=== PATIENT | male | born 1950 | race Caucasian/White ===

== ENCOUNTER 2021-12-22 10:42 | Outpatient (CLI) | payer MEDICARE, SELFPAY ==
[2021-12-22 10:55] VITALS: BMI 33.4
--- NOTE | 2021-12-22 11:04 | ECG_ITS ---
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 Interpretive Statements NAME OF STUDY: TREADMILL STRESS TEST INDICATION: [exertional cp, ] EXERCISE DATA: The patient was exercised by Joshua protocol. Baseline heart rate was 96 beats per minute. Baseline blood pressure was 164/60 millimeters of mercury. Target heart rate was 125 beats per minute. Maximum heart rate achieved was 128, which was 102% of the target heart rate. Maximum blood pressure was 215/65 millimeters of mercury. Total exercise time was 6 minutes and 20 seconds. Maximum METs achieved was 10.2, maximum VO2 was 35.7. The reason for ending the test was completion of the protocol. The patient complained of shortness of breath during the stress test, which then resolved at the end of the test. ELECTROCARDIOGRAM: BASELINE: Showed sinus rhythm, normal axis, no significant ST-T changes at the baseline noted. [] EXERCISE: At the peak exercise level, [] No significant ST-T changes suggestive of ischemia noted. [] RECOVERY: During the recovery period, heart rate dropped appropriately. No significant ST-T changes in the recovery suggestive of ischemia noted. [] CONCLUSION: 1. Exercise capacity good. 2. Heart rate response was appropriate. 3. Blood pressure response was hypertensive 4. Symptoms not suggestive of ischemia. 5. Electrocardiogram portion of the stress test was not suggestive of ischemia. Electronically Signed On 01-24-2022 21:09:41 CDT by Kenneth Grigsby M.D. [email or web address] [email or web address]/[email or web address]/[id number]
[2021-12-22 11:30] VITALS: BP 144/72; PULSE 78
== END 2021-12-22 10:43 | disposition home or self-care (01) ==
LOC: CDL 10:42
PROVIDERS: Visit Provider Family Medicine
DX: R07.89 Other chest pain (principal); R06.02 Shortness of breath
CPT/HCPCS: 93017

== ENCOUNTER 2023-03-07 14:23 | Inpatient (IN) | payer MEDICARE, SELFPAY ==
[2023-03-07] VITALS (27 sets, daily range): BP systolic 125–166; BP diastolic 67–106; PULSE 71–117; RESP 13–23; TEMP 36.9; O2SAT 92–96; BMI 33.4
--- NOTE | 2023-03-07 14:26 | XR_ITS ---
WS: [id number] Exam: XR chest 1V portable [id number] Date/Time of Exam: 03/07/2023 2:39 PM Reason For Exam: chest pain No priors. Findings: The lungs are clear and fully expanded. Costophrenic angles are sharp. No infiltrates. Bronchovascula r relief appears normal. Cardiac silhouette is unremarkable. Bony elements are intact. XR/XR chest 1V portable [id number] IMPRESSION: Unremarkable chest radiograph.
--- NOTE | 2023-03-07 14:29 | W.ED.CHESTPA ---
HPI - Chest Pain General: Chief Complaint: Chest Pain Stated Complaint: off and on chest pain Time Seen by Provider: 03/07/23 14:25 Source: patient Mode of arrival: ambulatory History of Present Illness: 72-year-old male presents to the emergency room with complaints of chest discomfort and rapid heart rate. He has had chest pain off and on he tells me he thought it was reflux he says he has had it for probably 4 to 5 years. He has been taking nitro when his reflux medications do not work. Recently he has begun to have increasing shortness of breath with it and rapid heart rate and palpitations. No significant swelling in his legs no orthopnea he does note that when he bends over his symptoms get worse. He had a stress test a year ago that reportedly was negative MD complaint: chest pain Onset (ago): week(s) Timing of current episode: episodic Prior episodes: Yes Onset: during rest Pain location: substernal Pain radiation: none Quality: aching Relieving factors: nothing Exacerbating factors: exertion and other (Bending over) Associated symptoms: Reports dyspnea and palpitations; Deny abdominal pain, diaphoresis, fever(s), leg edema, nausea, sense of impending doom, syncope or vomiting Treatment prior to arrival: none Review of Systems Const: Reports: fatigue; Denies: fever(s), chills or diaphoresis ENMT: Denies: throat pain, ear or mastoid pain, nasal discharge or nasal congestion Card: Reports: chest pain, palpitations and irregular heart rhythm; Denies: edema or syncope Resp: Reports: dyspnea GI: Denies: abdominal pain, nausea or vomiting : Denies: flank pain, dysuria, urinary frequency or urinary urgency Skin/Breast: Denies: rash or pruritus Physical Exam Const: GENERAL APPEARANCE: cooperative and comfortable ORIENTATION/CONSCIOUSNESS: Yes awake, Yes oriented to person, Yes oriented to place and Yes oriented to time HENMT: COMMON NORMALS: normocephalic, atraumatic and hearing grossly normal bilaterally HEAD & SCALP: normocephalic and atraumatic Resp: COMMON NORMALS: normal respiratory effort, No retractions, No use of accessory muscles and clear to auscultation bilaterally AUSCULTATION: clear to auscultation bilaterally Cardio: RATE: tachycardic RHYTHM: abnormal rhythm irregularly irregular GI: COMMON NORMALS: Soft to palpation and No hepatosplenomegaly present AUSCULTATION: Yes normoactive bowel sounds PALPATION: Yes Soft to palpation, No Tenderness to palpation present (GI), No Guarding due to palpation present (GI) and Yes No hepatosplenomegaly present Extremity: COMMON NORMALS: normal to inspection, capillary refill normal, no clubbing, cyanosis or edema, no calf tenderness and no pedal edema Neuro: SENSORIUM/ORIENTATION: Yes oriented to person, Yes oriented to place and Yes oriented to time Skin: COMMON NORMALS: no rashes or lesions noted GENERAL SKIN EXAM: no rashes or lesions noted Course Vital Signs: Vital signs: Vital Signs Temperature 98.4 F 03/07/23 14:31 Pulse Rate 71 03/07/23 16:25 Respiratory Rate 22 H 03/07/23 16:25 Blood Pressure 166/92 03/07/23 16:25 Pulse Oximetry 94 03/07/23 16:25 Oxygen Delivery Me thod Room Air 03/07/23 16:25 MDM - Chest Pain Medical Decision Making New onset A-fib. Labs most part unremarkable creatinine slightly elevated first troponin is 9. He did well with Cardizem. His rate is well controlled at this point but he still is in atrial fibrillation rhythm. Will admit for new onset A-fib discussed with hospitalist orders written. No evidence of heart failure serial enzymes are still pending to work-up his chest pain. Medical Records I reviewed the patient's medical records. Lab Data I reviewed the patient's lab results. 03/07/23 15:00 03/07/23 15:00 Radiology Impressions Chest X-Ray 03/07/23 14:26 IMPRESSION: Unremarkable chest radiograph. Laboratory Results WBC 6.4 10^3/uL (4.0-10.0) 03/07/23 15:00 RBC 5.34 10^6/uL (4.1-5.3) H 03/07/23 15:00 Hgb 15.8 g/dL (11.7-16.6) 03/07/23 15:00 Hct 47.8 % (42.0-52.0) 03/07/23 15:00 MCV 89.5 fl (80-94) 03/07/23 15:00 MCH 29.6 pg (28.0-34.0) 03/07/23 15:00 MCHC 33.1 g/dL (30.0-36.0) 03/07/23 15:00 RDW 12.6 % (12.1-15.1) 03/07/23 15:00 Plt Count 226 10^3/cmm (130-400) 03/07/23 15:00 MPV 8.7 fL (7.4-10.4) 03/07/23 15:00 Neut % (Auto) 62.3 % 03/07/23 15:00 Lymph % (Auto) 23.5 % 03/07/23 15:00 Marshall % (Auto) 11.3 % 03/07/23 15:00 Eos % (Auto) 2.0 % 03/07/23 15:00 Baso % (Auto) 0.6 % 03/07/23 15:00 Neut # (Auto) 3.96 10^3/uL (1.8-7.7) 03/07/23 15:00 Lymph # (Auto) 1.5 10^3/uL (0.8-4.8) 03/07/23 15:00 Marshall # (Auto) 0.7 10^3/uL (0.2-0.9) 03/07/23 15:00 Eos # (Auto) 0.1 10^3/uL (0.0-0.8) 03/07/23 15:00 Baso # (Auto) 0.0 10^3/uL (0.0-0.1) 03/07/23 15:00 Nucleated RBC % (auto) 0 % 03/07/23 15:00 Nucleated RBCs # 0.0 /100WBC 03/07/23 15:00 Sodium 141 mmol/L (136-145) 03/07/23 15:00 Potassium 4.5 mmol/L (3.5-5.1) 03/07/23 15:00 Chloride 107 mmol/L (98-107) 03/07/23 15:00 Carbon Dioxide 22 mmol/L (22-29) 03/07/23 15:00 Anion Gap 16.5 (5-19) 03/07/23 15:00 BUN 20 mg/dL (8-23) 03/07/23 15:00 Creatinine 1.3 mg/dL (0.7-1.2) H 03/07/23 15:00 GFR Calculation Not Reportable 03/07/23 15:00 Glucose 94 mg/dL (65-115) 03/07/23 15:00 Calculated Osmolality 294 mOsm/kg (285-295) 03/07/23 15:00 Calcium 9.2 mg/dL (8.5-10.5) 03/07/23 15:00 Total Bilirubin 0.4 mg/dL (0.15-1.2) 03/07/23 15:00 AST 18 U/L (0-40) 03/07/23 15:00 ALT 16 U/L (0-41) 03/07/23 15:00 Alkaline Phosphatase 110 U/L (40-130) 03/07/23 15:00 Troponin T Baseline 9 ng/L (0-15) 03/07/23 15:00 Total Protein 6.8 g/dL (6.6-8.7) 03/07/23 15:00 Albumin 4.2 g/dL (3.5-5.2) 03/07/23 15:00 Globulin 2.6 g/dL (1.3-4.6) 03/07/23 15:00 Discharge Plan Discharge Patient Disposition: Admitted As Inpatient Admit Provider: Heike Jackman Clinical Impression: Atrial fibrillation with RVR, Chest pain Condition: Stable Coding Level of Care Code ED 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
--- NOTE | 2023-03-07 14:30 | ECG_ITS ---
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 Measurements Intervals [place] Rate: 117 P: 0 NE: 0 QRS: 75 QRSD: 90 T: 62 QT: 336 QTc: 470 Interpretive Statements ATRIAL FLUTTER WITH RAPID VENTRICULAR RESPONSE NONSPECIFIC T-WAVE ABNORMALITY No previous ECG available for comparison Electronically Signed On 03-07-2023 17:23:15 CDT by Kenneth Grigsby M.D. [id number]
[2023-03-07 15:12] LABS: Basophils % 0.6 %; Eosinophils # 0.1 10^3/uL (0.0-0.8); Hematocrit 47.8 % (42.0-52.0); Hemoglobin 15.8 g/dL (11.7-16.6); Lymphocytes # 1.5 10^3/uL (0.8-4.8); Lymphocytes % 23.5 %; Mean Corpuscular HGB Conc 33.1 g/dL (30.0-36.0); Mean Corpuscular Hemoglobin 29.6 pg (28.0-34.0); Mean Corpuscular Volume 89.5 fl (80-94); Mean Platelet Volume 8.7 fL (7.4-10.4); Monocytes # 0.7 10^3/uL (0.2-0.9); Monocytes % 11.3 %; Neutrophils # 3.96 10^3/uL (1.8-7.7); Neutrophils % 62.3 %; Nucleated Red Blood Cells % 0 %; Platelet Count 226 10^3/cmm (130-400); Red Blood Count 5.34 10^6/uL (4.1-5.3); Red Cell Distribution Width 12.6 % (12.1-15.1); White Blood Count 6.4 10^3/uL (4.0-10.0)
[2023-03-07] MEDS: aspirin 81 mg Chew Tablet 324 MG PO (15:13)
[2023-03-07] MEDS: dilTIAZem 5 mg/mL SDV 5 mL 20 MG IVP (15:14)
[2023-03-07] MEDS: dilTIAZem 100 MG in sodium chloride 0.9% (add-van) 100 ML IV (15:23)
[2023-03-07 15:33] LABS: Troponin(5th) Baseline 9 ng/L (0-15)
[2023-03-07 15:35] LABS: Alanine Aminotransferase 16 U/L (0-41); Albumin Level 4.2 g/dL (3.5-5.2); Alkaline Phosphatase 110 U/L (40-130); Anion Gap 16.5 (5-19); Aspartate Amino Transferase 18 U/L (0-40); Blood Urea Nitrogen 20 mg/dL (8-23); Calcium 9.2 mg/dL (8.5-10.5); Carbon Dioxide 22 mmol/L (22-29); Chloride 107 mmol/L (98-107); Globulin 2.6 g/dL (1.3-4.6); Glucose 94 mg/dL (65-115); Osmolality Calculated 294 mOsm/kg (285-295); Potassium 4.5 mmol/L (3.5-5.1); Sodium 141 mmol/L (136-145); Total Bilirubin 0.4 mg/dL (0.15-1.2); Total Protein 6.8 g/dL (6.6-8.7)
--- NOTE | 2023-03-07 15:39 | ECG_ITS ---
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 Measurements Intervals [place] Rate: 90 P: 0 MN: 0 QRS: 52 QRSD: 108 T: 61 QT: 405 QTc: 497 Interpretive Statements ATRIAL FLUTTER INCOMPLETE RIGHT BUNDLE BRANCH BLOCK [90+ ms QRS DURATION, TERMINAL R IN V1/V2, 40+ ms S IN I/aVL/V4/V5/V6] Compared to ECG 03/07/2023 14:30:13 Incomplete right bundle-branch block now present T-wave abnormality no longer present Electronically Signed On 03-07-2023 17:24:45 CDT by Kenneth Grigsby M.D. [id number]
[2023-03-07 16:48] LABS: Troponin 5 2HR 8.92 ng/L (0-15)
[2023-03-07 16:52] LABS: Troponin 5 2HR Delta -0.08 ABS# (0-10)
--- NOTE | 2023-03-07 17:26 | PM.HP ---
Providers/Chief Complaint Admitting Physician: Heike Jackman MD Primary Care Provider: Sudhakar Armas Chief Complaint: off and on chest pain History of Present Illness Ashutosh Peck is a 72 year old male without significant past medical history presenting with chief complaint of acid reflux, shortness of breath. Patient is stating that for last few years he has been experiencing acid reflux for which he has been taking MiraLAX he had a stress test a year ago which was negative he takes nitroglycerin when MiraLAX fails. He is a former very active for his age does not have significant medical history, patient stating that he only sees When he needs to otherwise he avoids going to a doctor. His gallbladder surgery was roughly 14 years ago which was unremarkable however as per the family there was a stone around the pancreas and the stone was huge like a golf ball. Patient is denying chest pain, nausea, vomiting abdominal pain with eating however endorsing shortness of breath sometimes feeling weak in his arms when he is riding his truck. Never had any syncopal event, fever, diarrhea, history of coronary disease. Review of Systems Const: Denies: fever(s) Eyes: Denies: change in vision ENMT: Denies: throat pain Card: Denies: chest pain Resp: Reports: dyspnea GI: Reports: nausea and belching : Denies: flank pain Musc: Denies: neck pain Skin/Breast: Denies: rash Neuro: Denies: headache(s) Psych: Reports: anxiety Medications/Allergies Home Medications Medication Instructions Recorded Confirmed Last Taken Type No Known Home Medications 03/07/23 03/07/23 Unknown History Allergies Allergy/AdvReac Type Severity Reaction Status Date / Time No Known Allergies Allergy Verified 03/07/23 14:26 PFSH Acute PFSH: Medical History (Updated 03/07/23 @ 19:48 by Heike Jackman MD) GERD with esophagitis No pertinent past medical history Surgical History (Updated 03/07/23 @ 19:48 by Heike Jackman MD) Hx laparoscopic cholecystectomy Family History (Updated 03/07/23 @ 19:48 by Heike Jackman MD) Denies family history of CAD (coronary artery disease) Social History (Updated 03/07/23 @ 19:48 by Heike Jackman MD) Smoking and tobacco status: never smoked Alcohol intake: never Substance/Drug Use: never Household members: spouse Housing: House Vitals/I&O/Wt Last Vital Signs Temp 98.4 F 03/07/23 14:31 Pulse 81 03/07/23 16:44 Resp 15 03/07/23 16:30 BP 125/79 03/07/23 16:35 Pulse Ox 92 03/07/23 16:30 O2 Del Method Room Air 03/07/23 16:45 Weight last 48 hrs Weight 99.79 kg Physical Exam Narrative: Pleasant cooperative male Appears younger than stated age Healthy appearing Atrial flutter heart rate in 70s Blood pressure stable Pleasant and cooperative GCS 15 Abdomen soft Doing well on room air Family is at the bedside Nonfocal neuro exam Data 03/07/23 15:00 03/07/23 15:00 A&P Assessment and plan (1) Atrial fibrillation with RVR: Plan Paroxysmal atrial flutter Currently heart rate 70s [id number] 1 for age No history of heart failure or diabetes Check A1c level Check magnesium, TSH Requested echo There is a possibility this is not new onset atrial flutter this has been going on for quite some time In case he remains in abnormal rhythm will call cardiology to see if he would need cardioversion however likelihood is low at this point Added Cardizem 30 mg p.o. every 6 hours Start therapeutic Lovenox Check D-dimer Full code Cardiac diet No restrictions at all Patient can get up and walk around Currently on Cardizem drip running at 5 mg/h Attestations Medical Necessity Statement*: Anticipating stay in the hospital to cross more than 2 midnights management of paroxysmal atrial flutter Diagnoses Atrial fibrillation with RVR I48.91
--- NOTE | 2023-03-07 17:31 | USCV_ITS ---
Ashutosh Peck Age: 72 Gender: M : 1950 Exam Date: 03/07/2023 17:59 Ordering Phys: Heike Jackman MD Technologist: EDILSON Exam Location: [facility] [place], [place] Indication: new atrial fibrillation. No history of cardiac intervention per patient. BP: 125 / 79 HR: 69 Rhythm: Sinus with intermittentAtrial flutter Technical Quality: Adequate with OPTISON MEASUREMENTS (Male / Female) Normal Values 2D ECHO LV Diastolic Diameter PLAX 4.5 cm 4.2 - 5.9 / 3.9 - 5.3 cm LV Systolic Diameter PLAX 2.9 cm IVS Diastolic Thickness 1.3 cm 0.6 - 1.0 / 0.6 - 0.9 cm IVS Systolic Thickness 1.8 cm LVPW Diastolic Thickness 1.3 cm 0.6 - 1.0 / 0.6 - 0.9 cm LVPW Systolic Thickness 1.9 cm LVOT Diameter 2.0 cm LV Ejection Fraction 2D Teich 66.6 % LV Ejection Fraction MOD 2C 54.8 % LV Ejection Fraction 2C AL 53.7 % LA Diameter 4.4 cm LA Width 3.3 cm LA Height 5.2 cm RA Width 3.3 cm RA Height 5.3 cm Aorta at Sinotubular Diameter 3.1 cm IVC Diameter 1.5 cm M-MODE Aortic Annulus Diameter 2.8 cm LA Ao Ratio MM 1.5 MV E Point Septal Separation 0.4 cm DOPPLER AV Peak Velocity 152.0 cm/s LVOT Peak Velocity 87.0 cm/s AV Area Cont Eq vti 1.9 cm squared AV Area Cont Eq pk 1.9 cm squared MV Area PHT 4.4 cm squared Mitral E to A Ratio 2.2 MV E' Velocity 90.0 cm/s TR Peak Velocity 246.0 cm/s TR Peak Gradient 24.2 mmHg TV Peak E Velocity 40.0 cm/s Right Atrial Pressure 10.0 mmHg Pulmonary Artery Systolic Pressu 34.2 mmHg PV Peak Velocity 109.0 cm/s RV Acceleration Time 0.1 s RV Ejection Time 0.4 s RV AcT/ET 0.2 FINDINGS Left Ventricle Normal LV size ejection fraction of around 59%. No gross wall motion normalities noted Right Ventricle Appears to be of normal size and ejection fraction Right Atrium Possibly of normal size Left Atrium Possibly of normal size Mitral Valve No gross abnormalities noted Aortic Valve Thickened aortic valve. Tricuspid Valve No gross abnormalities noted Pulmonic Valve Pulmonic valve not well visualized. Pericardium Normal pericardium without effusion. Aorta Normal aortic annulus size. IVC Inferior vena cava not visualized. CONCLUSIONS Normal LV size andejection fraction of around 59%. No gross wall motion normalities noted. Possibly normal cardiac chamber sizes. No gross valvular abnormalities are noted. No significant pericardial effusion Because of technical difficulty, Optison was used for LV function analysis, as per protocol Dr Pastora Shepard MD FACC (Electronically Signed) Final Date: 09 March 2023 08:02 S
[2023-03-07] MEDS: dilTIAZem 30 mg Tablet PO ×2 (17:48→22:58)
[2023-03-07] MEDS: magnesium oxide 400 mg tablet PO (17:48)
[2023-03-07] MEDS: enoxaparin 100 mg/mL Syringe SUBCUT (17:48)
[2023-03-07 18:14] LABS: D Dimer 2.64 ug/mIFEU (0-0.59)
[2023-03-07 18:32] LABS: Thyroid Stimulating Hormone 2.12 uIU/mL (0.27-4.20)
--- NOTE | 2023-03-07 19:50 | USCV_ITS ---
Ashutosh Peck Age: 72 Gender: M : 1950 Exam Date: 03/07/2023 21:33 Ordering Phys: Heike Jackman MD Technologist: EDILSON Exam Location: [facility] – [place] Indication: atrial flutter. No history of DVT per patient. HISTORY: atrial flutter. No history of DVT per patient. PROCEDURES: Venous duplex imaging was performed in bilateral lower extremities. The following venous structures were evaluated: common femoral vein, profunda vein, proximal portion of the greater saphenous vein, superficial femoral vein, and the popliteal vein. In addition, the posterior tibial and peroneal veins were evaluated. FINDINGS: Normal 2-D Doppler and augmentation and compressibility throughout the lower extremity venous structures. Additional imaging through the proximal calf veins also reveals no thrombus. Limited evaluation of the greater saphenous vein is patent with no thrombus. CONCLUSIONS No DVT bilateral lower extremities. Dr. Pearl Roy DO (Electronically Signed) Final Date: 08 March 2023 07:20 S
--- NOTE | 2023-03-07 19:50 | CTR_ITS ---
PROCEDURE INFORMATION: Exam: CTA Chest With Contrast Exam date and time: 03/07/2023 8:47 PM Age: 72 years old Clinical indication: Other: Afib TECHNIQUE: Imaging protocol: Computed tomographic angiography of the chest with contrast. Exam focused on the arteries. 3D rendering (Not supervised by radiologist): MIP and/or 3D reconstructed images were created by the technologist. Radiation optimization: All CT scans at this facility use at least one of these dose optimization techniques: automated exposure control; mA and/or kV adjustment per patient size (includes targeted exams where dose is matched to clinical indication); or iterative reconstruction. Contrast material: OMNI 350; Contrast volume: 100 ml; Contrast route: INTRAVENOUS (IV); REPORTING DATA: Count of CT and Cardiac NM exams in prior 12 months: This patient has received 0 known CTs and 0 known cardiac nuclear medicine studies in the 12 months prior to the current study. COMPARISON: CR XR chest 1V portable [id number] 03/07/2023 2:40 PM RADIATION DOSE METRICS: Total DLP (mGy-cm): 468.04 FINDINGS: Pulmonary arteries: Pulmonary arteries are normal in size. No filling defects are demonstrated. No evidence of pulmonary embolism. Aorta: Ascending aorta measures 3.5 cm in diameter. No evidence of aortic dissection. Lungs: Mild dependent atelectasis in the lower lobes. No consolidative pulmonary infiltrate noted. Pleural spaces: No pneumothorax. No pleural effusion. Heart: No cardiomegaly. No pericardial effusion. Coronary arteries: The coronary arteries demonstrate atherosclerotic calcifications. Lymph nodes: Unremarkable. No enlarged lymph nodes. Bones/joints: Degenerative spine changes are noted. No acute osseous abnormality. Soft tissues: Unremarkable. CT/CT angio chest PE protcl [id number] IMPRESSION: 1. No evidence of pulmonary embolism. 2. No evidence of aortic dissection. 3. Mild dependent atelectasis in the lower lobes. No consolidative pulmonary infiltrate noted.
[2023-03-07 20:26] LABS: Estmated Average Glucose 114; Hemoglobin A1C 5.6 % (4.0-6.0)
--- NOTE | 2023-03-07 20:27 | ECG_ITS ---
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 Measurements Intervals [place] Rate: 71 P: 0 SD: 0 QRS: 124 QRSD: 114 T: 129 QT: 406 QTc: 442 Interpretive Statements ATRIAL FLUTTER POSSIBLE RIGHT VENTRICULAR HYPERTROPHY [SOME/ALL OF: PROMINENT R IN V1, LATE TRANSITION, RAD, BRAD, SSS] Compared to ECG 03/07/2023 15:39:21 Incomplete right bundle-branch block no longer present Electronically Signed On 03-07-2023 23:19:47 CDT by Kenneth Grigsby M.D. [id number]
[2023-03-07] MEDS: iohexol 350 mg/mL 500 mL Btl (per mL) IV (20:49)
[2023-03-07 22:41] LABS: Troponin 5 6HR 10.43 ng/L (0-15)
[2023-03-07 22:57] LABS: Troponin 5 6HR Delta 1.43 ng/L (0-12)
[2023-03-07 23:00] LABS: Prostate Specific Antigen 0.495 ng/mL (0-4)
[2023-03-08] VITALS (7 sets, daily range): BP systolic 99–126; BP diastolic 65–71; PULSE 71–89; RESP 15–17; TEMP 36.9; O2SAT 94–96
[2023-03-08 04:56] LABS: Basophils % 0.5 %; Eosinophils # 0.2 10^3/uL (0.0-0.8); Eosinophils % 2.9 %; Hematocrit 45.9 % (42.0-52.0); Hemoglobin 15.3 g/dL (11.7-16.6); Lymphocytes # 1.8 10^3/uL (0.8-4.8); Lymphocytes % 30.2 %; Mean Corpuscular HGB Conc 33.3 g/dL (30.0-36.0); Mean Corpuscular Hemoglobin 29.5 pg (28.0-34.0); Mean Corpuscular Volume 88.6 fl (80-94); Mean Platelet Volume 9.2 fL (7.4-10.4); Monocytes # 0.7 10^3/uL (0.2-0.9); Monocytes % 10.9 %; Neutrophils # 3.28 10^3/uL (1.8-7.7); Nucleated Red Blood Cells % 0 %; Platelet Count 216 10^3/cmm (130-400); Red Blood Count 5.18 10^6/uL (4.1-5.3); Red Cell Distribution Width 12.6 % (12.1-15.1)
[2023-03-08 05:13] LABS: Anion Gap 15.3 (5-19); Blood Urea Nitrogen 17 mg/dL (8-23); Carbon Dioxide 24 mmol/L (22-29); Chloride 105 mmol/L (98-107); Glucose 94 mg/dL (65-115); Magnesium 2.1 mg/dL (1.7-2.3); Osmolality Calculated 291 mOsm/kg (285-295); Potassium 4.3 mmol/L (3.5-5.1); Sodium 140 mmol/L (136-145)
[2023-03-08] MEDS: enoxaparin 100 mg/mL Syringe SUBCUT (05:55)
[2023-03-08] MEDS: dilTIAZem 30 mg Tablet PO ×2 (05:55→12:13)
[2023-03-08] MEDS: magnesium oxide 400 mg tablet PO (08:46)
--- NOTE | 2023-03-08 09:47 | PC.CHAP ---
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 [] Patient/Family/Request visit [] Outpatient visit [] Follow-up visit [] Physician referral [] Code/Alert [x] Routine visit [] Staff referral [] Actively dying [] Patient sleeping [] Family support [] [] Out of room [] Palliative care [] [] Receiving care in room [] Pre-surgical visit [] Trauma [] Long length of stay [] ICU visit [] Other: Relational/Emotional Strength [x] Patient feels connected with others/family/visitors/staff [] Distress [] Loneliness/isolation [] Abandonment Spirituality of Patient [x] Person of Aaliyah [x] Attends Muslim of their Aaliyah [x] Believes in Prayer [x] Reads Bible or Uatsdin materials [] There are Spiritual issues to be addressed Audio Engineer Interventions [x] Prayer [x] Active listening [] Non-anxious presence [x] Spiritual/emotional support [] Crisis/trauma care [] Spiritual counseling [] Bereavement support [] Provided bereavement packet [] Provided Bible/devotional materials [] Provided toy/stuffed animal, coloring book to patient or family member [] Provided Communion [] Anointing/Lavinia [] Salvation [x] Completed spiritual assessment [] Other: Impact on Illness or Injury [] Angry [] Fearful [] Anxious [] Often cries [] Exhaustion [] Unable to work [] Unable to attend moravian [] Unable to walk/stand [] Unable to read [] Unable to drive [] Unable to eat/drink [] Unable to sleep [] Unable to be with family [] Patient intubated [] Other: Summary Time spent with patient 15 min
--- NOTE | 2023-03-08 10:53 | PM.PN ---
Subjective Subjective: I will request stress test was tomorrow Heart rate is slightly better as compared to yesterday Patient is doing well No active chest pain Echo is pending Diltiazem drip has been discontinued Vitals/I&O/Wt Last Vital Signs Temp 98.5 F 03/08/23 08:13 Pulse 81 03/08/23 08:13 Resp 15 03/08/23 08:13 BP 120/71 03/08/23 08:13 Pulse Ox 94 03/08/23 08:13 O2 Del Method Room Air 03/08/23 08:13 03/07/23 03/08/23 03/08/23 22:59 06:59 14:59 Intake Total 128.083 / 128.083 720 / 720 Balance 128.083 / 128.083 720 / 720 Weight last 48 hrs Weight 99.79 kg Physical Exam Narrative: Rhythm is still atrial flutter Heart rate in 70s to 100s Variable S1-S2 abdomen soft GCS 15 Nonfocal neuro exam No apparent distress Abdomen soft Data 03/08/23 04:16 03/08/23 04:16 A&P Assessment and plan (1) Atrial fibrillation with RVR: Plan Plan for stress test tomorrow No signs of PE or DVT Continue p.o. Cardizem along Lovenox Idris vas score is only 1 I will discharge patient on aspirin at the time of discharge Patient is full code P n.p.o. after midnight Stress test for tomorrow morning Plan to discharge him tomorrow Attestations Medical Necessity Statement*: Rest tomorrow Diagnoses Atrial fibrillation with RVR I48.91
--- NOTE | 2023-03-08 13:53 | P.DS_ITS ---
Discharge Providers Date of Admission: 03/07/23 15:48 Date of Discharge: March 08, 2023 Attending Provider at Admission: Heike Jackman MD Attending Provider at Discharge: Heike Jackman MD Primary Care Provider: Sudhakar Armas Diagnoses at Discharge Discharge Diagnosis (1) Atrial fibrillation with RVR: Status: Acute Reason for Visit Reason for Visit: off and on chest pain Hospital Course Hospital Course 72-year-old male without significant past medical history presented to the hospital with chief complaint of epigastric burning, troponins negative, D-dimer was high, CTA chest did not show PE venous Doppler did not show signs of DVT, patient remained hemodynamically stable he was initially put on Cardizem drip which was transitioned to p.o. Cardizem his heart rate on rest is around 70 on ambulation its flexors between 90-100 he has been getting Cardizem 240 mg in the hospital, at the time of discharge I will give him 360 mg, his Idris vas score is 1 does not meet criteria to be on any anticoagulating agent we will discharge him on aspirin high-dose. His recent stress test was unremarkable there is no need to repeat stress test at this point. He did not complain of any chest pain. 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 I will give him referral to see cardiology within 2 weeks. Patient symptoms seems to be chronic, I do not believe this is acute in nature he is not symptomatic with his current atrial flutter rhythm does not meet criteria to get cardioversion during hospitalization Physical Exam Narrative: S1, S2 atrial flutter heart rate in 70s Awake and alert GCS 15 Currently on room air Pleasant and cooperative Discharge Data Studies Completed and Pending Completed Studies During Hospitalization Category Date Time Status CTA PE [CT angio chest PE protcl [id number]] Routine Cat Scan 03/07/23 19:50 Completed XR chest 1V portable [id number] Stat Exams 03/07/23 14:26 [place] [id number] Routine Ultrasound 03/07/23 19:50 Completed Pending at discharge Category Date Time Status Sestamibi Stress Test Request Routine Exams 03/08/23 10:53 Ordered NM sid perf SPECT r/s* [id number] Routine Nuc Med 03/09/23 08:00 Ordered CV. echo wo/w contrast [id number] Routine Ultrasound 03/07/23 17:31 Taken Radiology Impressions Chest X-Ray 03/07/23 14:26 IMPRESSION: Unremarkable chest radiograph. Chest CTA 03/07/23 19:50 IMPRESSION: 1. No evidence of pulmonary embolism. 2. No evidence of aortic dissection. 3. Mild dependent atelectasis in the lower lobes. No consolidative pulmonary infiltrate noted. Laboratory Results WBC 6.0 10^3/uL (4.0-10.0) 03/08/23 04:16 RBC 5.18 10^6/uL (4.1-5.3) 03/08/23 04:16 Hgb 15.3 g/dL (11.7-16.6) 03/08/23 04:16 Hct 45.9 % (42.0-52.0) 03/08/23 04:16 MCV 88.6 fl (80-94) 03/08/23 04:16 MCH 29.5 pg (28.0-34.0) 03/08/23 04:16 MCHC 33.3 g/dL (30.0-36.0) 03/08/23 04:16 RDW 12.6 % (12.1-15.1) 03/08/23 04:16 Plt Count 216 10^3/cmm (130-400) 03/08/23 04:16 MPV 9.2 fL (7.4-10.4) 03/08/23 04:16 Neut % (Auto) 55.0 % 03/08/23 04:16 Lymph % (Auto) 30.2 % 03/08/23 04:16 [place] % (Auto) 10.9 % 03/08/23 04:16 Eos % (Auto) 2.9 % 03/08/23 04:16 Baso % (Auto) 0.5 % 03/08/23 04:16 Neut # (Auto) 3.28 10^3/uL (1.8-7.7) 03/08/23 04:16 Lymph # (Auto) 1.8 10^3/uL (0.8-4.8) 03/08/23 04:16 [place] # (Auto) 0.7 10^3/uL (0.2-0.9) 03/08/23 04:16 Eos # (Auto) 0.2 10^3/uL (0.0-0.8) 03/08/23 04:16 Baso # (Auto) 0.0 10^3/uL (0.0-0.1) 03/08/23 04:16 Nucleated RBC % (auto) 0 % 03/08/23 04:16 Nucleated RBCs # 0.0 /100WBC 03/08/23 04:16 D-Dimer 2.64 ug/mIFEU (0-0.59) H 03/07/23 15:00 Sodium 140 mmol/L (136-145) 03/08/23 04:16 Potassium 4.3 mmol/L (3.5-5.1) 03/08/23 04:16 Chloride 105 mmol/L (98-107) 03/08/23 04:16 Carbon Dioxide 24 mmol/L (22-29) 03/08/23 04:16 Anion Gap 15.3 (5-19) 03/08/23 04:16 BUN 17 mg/dL (8-23) 03/08/23 04:16 Creatinine 1.0 mg/dL (0.7-1.2) 03/08/23 04:16 GFR Calculation Not Reportable 03/08/23 04:16 Glucose 94 mg/dL (65-115) 03/08/23 04:16 Estimat Average Glucose 114 03/07/23 15:00 Hemoglobin A1c 5.6 % (4.0-6.0) 03/07/23 15:00 Calculated Osmolality 291 mOsm/kg (285-295) 03/08/23 04:16 Calcium 9.0 mg/dL (8.5-10.5) 03/08/23 04:16 Phosphorus 3.0 mg/dL (2.5-4.5) 03/08/23 04:16 Magnesium 2.1 mg/dL (1.7-2.3) 03/08/23 04:16 Total Bilirubin 0.4 mg/dL (0.15-1.2) 03/07/23 15:00 AST 18 U/L (0-40) 03/07/23 15:00 ALT 16 U/L (0-41) 03/07/23 15:00 Alkaline Phosphatase 110 U/L (40-130) 03/07/23 15:00 Troponin T Baseline 9 ng/L (0-15) 03/07/23 15:00 Troponin T 120 Minute 8.92 ng/L (0-15) 03/07/23 16:27 Delta Troponin T -0.08 ABS# (0-10) L 03/07/23 16:27 Troponin T Hi Sens 6Hr 10.43 ng/L (0-15) 03/07/23 22:16 Troponin T Hi Sens 6Hr Delta 1.43 ng/L (0-12) 03/07/23 22:16 C-Reactive Protein 3.0 mg/L (0.0-4.9) 03/08/23 04:16 Total Protein 6.8 g/dL (6.6-8.7) 03/07/23 15:00 Albumin 4.2 g/dL (3.5-5.2) 03/07/23 15:00 Globulin 2.6 g/dL (1.3-4.6) 03/07/23 15:00 Carcinoembryonic Ag 4.0 ng/mL (0.0-4.7) 03/07/23 16:27 Prostate Specific Ag 0.495 ng/mL (0-4) 03/07/23 16:27 TSH 2.12 uIU/mL (0.27-4.20) 03/07/23 15:00 Vitals Last Vital Signs Temp 98.5 F 03/08/23 08:13 Pulse 89 03/08/23 12:00 Resp 16 03/08/23 12:00 BP 99/67 03/08/23 12:00 Pulse Ox 95 03/08/23 12:00 O2 Del Method Room Air 03/08/23 12:00 Discharge Plan Discharge Patient Disposition: Home Condition: Stable Prescriptions: New aspirin 325 mg tablet,delayed release (DR/EC) 325 mg PO DAILY Qty: 90 3RF diltiazem HCl [Cardizem LA] 360 mg tablet extended release 24 hr 360 mg PO DAILY Qty: 120 3RF No Action No Known Home Medications Discharge Orders: Discharge Order (Routine); Ordered 03/08/23 Ordered By: Heike Jackman Referrals: Pastora Shepard MD [Physician] - 7-10 days Discharge Diet: Cardiac Patient Instructions: Opioid Safety Discharge Attestations Time Spent in Discharge Care*: greater than 30 min Quality Metrics Clinical Quality Measures [ No reported AMI, CVA or VTE this stay] Coding Level of Care Code Acute Code for Chg Fwd Diagnoses Atrial fibrillation with RVR I48.91
== END 2023-03-08 15:30 | disposition home or self-care (01) | DRG 310 ==
LOC: ER 15:25 → CSU 16:01
PROVIDERS: Admitting Provider Internal Medicine; Emergency Provider Family Medicine; PCP Family Medicine; Visit Provider Internal Medicine
DX: I48.92 Unspecified atrial flutter (principal); I48.91 Unspecified atrial fibrillation; K21.9 Gastro-esophageal reflux disease without esophagitis
CPT/HCPCS: 36415; 71045; 71275; 80048; 80053; 82378; 83036; 83735; 84100; 84153; 84443; 84484; 85025; 85378; 86140; 93005; 93970; 96365; 96372; 96375; 99285; C8929; J1650; J3490; Q9967